=== PATIENT | female | born 1935 | race Caucasian/White ===

== ENCOUNTER 2017-09-03 17:07 | Inpatient (IN) | payer OTHER ==
[2017-09-03 17:17] VITALS: BMI 19.0
--- NOTE | 2017-09-03 18:31 | HP ---
CIWA Score - CIWA Score Nausea/Vomitin Muscle Tremors: 4-Moderate,w/Arms Extend Anxiety: 4-Mod. Anxious/Guarded Agitation: 4-Moderately Restless Paroxysmal Sweats: 3 Orientation: 0-Oriented Tacttile Disturbances: 1-Very Mild Itch/Numbness Auditory Disturbances: 0-None Visual Disturbances: 0-None Headache: 0-None Present CIWA-Ar Total Score: 19 Admission ROS BHS - HPI Chief Complaint: Withdrawal sx. Allergies/Adverse Reactions: Allergies Allergy/AdvReac Type Severity Reaction Status Date / Time No Known Drug Allergies Allergy Verified 09/03/17 18:07 NKA Allergy Uncoded 09/03/17 18:07 History of Present Illness: 82 y/o woman with a long hx. of alcoholism is admitted for detox. Pt. has been in previous detox & rehab, reports almost 2 yrs. sober in 1987 to 1989. Exam Limitations: No Limitations - Ebola screening Have you traveled outside of the country in the last 21 days: No (N) Have you had contact with anyone from an Ebola affected area: No Have you been sick,other than usual withdrawal symptoms: No Do you have a fever: No - Review of Systems Constitutional: Diaphoresis EENT: reports: Hearing Loss (has hearing aide) Respiratory: reports: No Symptoms reported Cardiac: reports: No Symptoms Reported GI: reports: Nausea, Abdominal cramping : reports: No Symptoms Reported Musculoskeletal: reports: Back Pain, Joint Pain, Muscle Pain Integumentary: reports: Sweating Neuro: reports: Tremors Endocrine: reports: No Symptoms Reported Hematology: reports: No Symptoms Reported Psychiatric: reports: No Sypmtoms Reported Other Systems: Reviewed and Negative Patient History - Patient Medical History Hx Anemia: No Hx Asthma: No Hx Chronic Obstructive Pulmonary Disease (COPD): No Hx Cancer: No Hx Cardiac Disorders: Yes (mild IA) Hx Congestive Heart Failure: No Hx Hypertension: Yes Hx Hypercholesterolemia: No Hx Pacemaker: No HX Cerebrovascular Accident: No Hx Seizures: No Hx Dementia: No Hx Diabetes: No Hx Gastrointestinal Disorders: No Hx Liver Disease: No Hx Genitourinary Disorders: No Hx Sexually Transmitted Disorders: No Hx Renal Disease (ESRD): No Hx Thyroid Disease: No Hx Human Immunodeficiency Virus (HIV): No Hx Hepatitis C: No Hx Depression: Yes Hx Suicide Attempt: No Hx Bipolar Disorder: No Hx Schizophrenia: No - Patient Surgical History Past Surgical History: Yes Hx Neurologic Surgery: No Hx Cataract Extraction: No Hx Cardiac Surgery: No Hx Lung Surgery: No Hx Breast Surgery: No Hx Breast Biopsy: No Hx Abdominal Surgery: No Hx Appendectomy: No Hx Cholecystectomy: No Hx Genitourinary Surgery: No Hx Section: No Hx Orthopedic Surgery: Yes (RT KNEE REPLACEMENT 5 YRS AGO) Hx Hysterectomy: No Anesthesia Reaction: No - PPD History Previous Implant?: Yes Documented Results: Negative w/o proof Implanted On Prior R Admission?: No PPD to be Administered?: Yes - Smoking Cessation Smoking history: Former smoker Have you smoked in the past 12 months: No If you are a former smoker, when did you quit?: 60YRS AGO Hx Chewing Tobacco Use: No Initiated information on smoking cessation: No - Substance & Tx. History Hx Alcohol Use: Yes Hx Substance Use: No Substance Use Type: Alcohol Hx Substance Use Treatment: Yes (detox & rehab) - Substances Abused Alcohol Route: Oral Frequency: Daily Amount used: VODKA 1-2 pints Age of first use: 38 Date of Last Use: 09/03/17 Family Disease History - Family Disease History Family Disease History: Diabetes: Father, Heart Disease: Brother Admission Physical Exam BHS - Vital Signs Vital Signs: Vital Signs - 24 hr 09/03/17 17:09 Temperature 96.5 F L Pulse Rate 116 H Respiratory 20 Rate Blood Pressure 186/84 - Physical General Appearance: Yes: Tremorous, Irritable, Sweating, Anxious HEENTM: Yes: Within Normal Limits Respiratory: Yes: Chest Non-Tender, Lungs Clear, Normal Breath Sounds Neck: Yes: Supple Breast: Yes: Breast Exam Deferred Cardiology: Yes: Regular Rhythm, Regular Rate, S1, S2 Abdominal: Yes: Normal Bowel Sounds, Non Tender, Flat Genitourinary: Yes: Within Normal Limits Back: Yes: Within Normal Limits Musculoskeletal: Yes: Within Normal Limits Extremities: Yes: Tremors Neurological: Yes: Fully Oriented, Alert Integumentary: Yes: Diaphoresis Lymphatic: Yes: Within Normal Limits - Diagnostic (1) Alcohol dependence with uncomplicated withdrawal Current Visit: Yes Status: Acute (2) HTN (hypertension) Current Visit: Yes Status: Acute Qualifiers: Hypertension type: essential hypertension Qualified Code(s): I10 - Essential (primary) hypertension (3) Osteoarthritis Current Visit: Yes Status: Acute Qualifiers: Osteoarthritis location: hand Osteoarthritis type: primary Laterality: bilateral Qualified Code(s): M19.041 - Primary osteoarthritis, right hand; M19.042 - Primary osteoarthritis, left hand; M19.042 - Primary osteoarthritis, left hand Cleared for Admission BHS - Detox or Rehab [facility] Level of Care: Medically Managed Detox Regimen/Protocol: Librium S Breath Alcohol Content Breath Alcohol Content: 0 Urine Pregancy Test - Result Urine Test Results: Negative- NO Line Present Urine Drug Screen - Results Drug Screen Negative: No Urine Drug Screen Results: BZO-Benzodiazepines
[2017-09-03] MEDS ORDERED: LOPERAMIDE HCL 2 MG CAPSULE PO PRN (18:44)
[2017-09-03] MEDS ORDERED: P-EPHED 60MG/TRIPROLIDI 2.5MG TABLET PO PRN (18:44)
[2017-09-03] MEDS ORDERED: chlordiazePOXIDE HCL 25 MG CAPSULE PO PRN (18:44)
[2017-09-03] MEDS ORDERED: chlordiazePOXIDE HCL 25 MG CAPSULE PO ONE (18:44)
[2017-09-03] MEDS ORDERED: MENTHOL/PHENOL 1 EACH UD MM PRN (18:44)
[2017-09-03] MEDS ORDERED: guaiFENesin/D-METHORPHAN HB 10 ML UNIT-DOSE CUPS PO PRN (18:44)
[2017-09-03] MEDS ORDERED: MAGNESIUM HYDROX 2400MG/30ML ORAL SUSPENSION 30 ML CUP PO PRN (18:44)
[2017-09-03] MEDS ORDERED: MAGNESIUM CITRATE 300 ML BOTTLE PO PRN (18:44)
[2017-09-03] MEDS ORDERED: IBUPROFEN 400 MG TABLET (FP) PO PRN (18:44)
[2017-09-03] MEDS ORDERED: amLODIPine BESYLATE 5 MG TABLET (FP) PO ONE (18:51)
[2017-09-03] MEDS: THIAMINE HCL 100 MG TABLET (FP) PO SCH (23:06)
[2017-09-03] MEDS: amLODIPine BESYLATE 5 MG TABLET (FP) PO SCH (23:06)
[2017-09-03] MEDS: chlordiazePOXIDE HCL 25 MG CAPSULE PO SCH (23:06)
[2017-09-04] MEDS: chlordiazePOXIDE HCL 25 MG CAPSULE PO SCH ×3 (06:30→17:28)
[2017-09-04 10:06] LABS: ALBUMIN 2.6 g/dl (3.4-5.0); ANION GAP 9 (8-16); CALCIUM 8.9 mg/dL (8.5-10.1); CO2 27 mmol/L (21-32); GLUCOSE,RANDOM 162 mg/dL (74-106); SGOT/AST 10 U/L (15-37); SGPT/ALT 13 U/L (12-78)
[2017-09-04 10:09] LABS: ALK PHOS 81 U/L (45-117); BILIRUBIN,TOTAL 0.5 mg/dL (0.2-1.0); TOT PROT 6.1 g/dl (6.4-8.2)
[2017-09-04 10:17] LABS: MCH 31.1 pg (25.7-33.7); MCHC 33.9 g/dl (32.0-36.0); MEAN CELL VOLUME 91.6 fl (80-96); MEAN PLT VOLUME 7.4 fl (7.5-11.1); PLATELET COUNT 249 K/MM3 (134-434); RDW 14.8 % (11.6-15.6); WHITE BLOOD COUNT 8.3 K/mm3 (4.0-10.0)
--- NOTE | 2017-09-04 10:46 | PN ---
[facility] CIWA - CIWA Score Nausea/Vomitin-Mild Nausea/No Vomiting Muscle Tremors: 4-Moderate,w/Arms Extend Anxiety: 4-Mod. Anxious/Guarded Agitation: 3 Paroxysmal Sweats: 1-Minimal Palms Moist Orientation: 0-Oriented Tacttile Disturbances: 0-None Auditory Disturbances: 0-None Visual Disturbances: 0-None Headache: 0-None Present CIWA-Ar Total Score: 13 BHS Progress Note (SOAP) Subjective: nausea tremor agitation Objective: 09/04/17 10:45 Vital Signs Temperature 98.4 F 09/04/17 10:42 Pulse Rate 99 H 09/04/17 10:42 Respiratory Rate 18 09/04/17 10:42 Blood Pressure 151/78 09/04/17 10:42 O2 Sat by Pulse Oximetry (%) Laboratory Last Values WBC 8.3 K/mm3 (4.0-10.0) 09/04/17 08:00 RBC 3.62 M/mm3 (3.60-5.2) 09/04/17 08:00 Hgb 11.3 GM/dL (10.7-15.3) 09/04/17 08:00 Hct 33.2 % (32.4-45.2) 09/04/17 08:00 MCV 91.6 fl (80-96) 09/04/17 08:00 MCH 31.1 pg (25.7-33.7) 09/04/17 08:00 MCHC 33.9 g/dl (32.0-36.0) 09/04/17 08:00 RDW 14.8 % (11.6-15.6) 09/04/17 08:00 Plt Count 249 K/MM3 (134-434) 09/04/17 08:00 MPV 7.4 fl (7.5-11.1) L 09/04/17 08:00 Sodium 141 mmol/L (136-145) 09/04/17 08:00 Potassium 4.1 mmol/L (3.5-5.1) 09/04/17 08:00 Chloride 105 mmol/L (98-107) 09/04/17 08:00 Carbon Dioxide 27 mmol/L (21-32) 09/04/17 08:00 Anion Gap 9 (8-16) 09/04/17 08:00 BUN 19 mg/dL (7-18) H 09/04/17 08:00 Creatinine 1.0 mg/dL (0.55-1.02) 09/04/17 08:00 Creat Clearance w eGFR 52.82 (>60) 09/04/17 08:00 Random Glucose 162 mg/dL (74-106) H 09/04/17 08:00 Calcium 8.9 mg/dL (8.5-10.1) 09/04/17 08:00 Total Bilirubin 0.5 mg/dL (0.2-1.0) 09/04/17 08:00 AST 10 U/L (15-37) L 09/04/17 08:00 ALT 13 U/L (12-78) 09/04/17 08:00 Alkaline Phosphatase 81 U/L (45-117) 09/04/17 08:00 Total Protein 6.1 g/dl (6.4-8.2) L 09/04/17 08:00 Albumin 2.6 g/dl (3.4-5.0) L 09/04/17 08:00 lab noted Assessment: 09/04/17 10:46 withdrawal sx Plan: continue detox
[2017-09-04] MEDS: PRENATAL VITAMINS W/ FOLIC ACID TABLET (FP) PO SCH (11:01)
[2017-09-04] MEDS: amLODIPine BESYLATE 5 MG TABLET (FP) PO SCH ×2 (11:02→22:57)
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
[2017-09-04] MEDS: chlordiazePOXIDE HCL 10 MG CAPSULE PO SCH (22:57)
[2017-09-04] MEDS: THIAMINE HCL 100 MG TABLET (FP) PO SCH (22:57)
[2017-09-05] MEDS: chlordiazePOXIDE HCL 10 MG CAPSULE PO SCH ×3 (06:47→17:45)
[2017-09-05] MEDS: PRENATAL VITAMINS W/ FOLIC ACID TABLET (FP) PO SCH (11:15)
[2017-09-05] MEDS: amLODIPine BESYLATE 5 MG TABLET (FP) PO SCH ×2 (11:18→22:35)
--- NOTE | 2017-09-05 12:55 | PN ---
S CIWA - CIWA Score Nausea/Vomitin-No Nausea/No Vomiting Muscle Tremors: 4-Moderate,w/Arms Extend Anxiety: 3 Agitation: 3 Paroxysmal Sweats: 3 Orientation: 0-Oriented Tacttile Disturbances: 0-None Auditory Disturbances: 0-None Visual Disturbances: 0-None Headache: 0-None Present CIWA-Ar Total Score: 13 BHS Progress Note (SOAP) Subjective: chronic knee pain sweats shakes interrupted sleep Objective: 09/05/17 12:53 Vital Signs Temperature 98.1 F 09/05/17 10:00 Pulse Rate 94 H 09/05/17 10:00 Respiratory Rate 18 09/05/17 10:00 Blood Pressure 134/82 09/05/17 10:00 O2 Sat by Pulse Oximetry (%) Laboratory Tests 09/04/17 09/04/17 09/04/17 08:00 08:00 08:00 WBC 8.3 RBC 3.62 Hgb 11.3 Hct 33.2 MCV 91.6 MCH 31.1 MCHC 33.9 RDW 14.8 Plt Count 249 MPV 7.4 L Sodium 141 Potassium 4.1 Chloride 105 Carbon Dioxide 27 Anion Gap 9 BUN 19 H Creatinine 1.0 Creat Clearance w eGFR 52.82 Random Glucose 162 H Calcium 8.9 Total Bilirubin 0.5 AST 10 L ALT 13 Alkaline Phosphatase 81 Total Protein 6.1 L Albumin 2.6 L RPR Titer Nonreactive labs pending aaox3 ambulating no acute distress Assessment: 09/05/17 12:54 withdrawal sx Plan: continue detox increase fluids analgesic cream bid motrin prn
[2017-09-05] MEDS: METHYL SALICYLATE/MENTHOL OINT 30 GM TUBE TP SCH ×2 (14:42→22:58)
--- NOTE | 2017-09-05 15:14 | EKG ---
Test Reason : Blood Pressure : / mmHG Vent. Rate : 096 BPM Atrial Rate : 096 BPM P-R Int : 156 ms QRS Dur : 078 ms QT Int : 372 ms P-R-T Axes : 082 -03 039 degrees QTc Int : 469 ms SINUS RHYTHM WITH PREMATURE ATRIAL COMPLEXES NONSPECIFIC ST AND T WAVE ABNORMALITY ABNORMAL ECG WHEN COMPARED WITH ECG OF 03-SEP-2017 19:58, T WAVE VARIATION Confirmed by SHEYLA KENDRICK, JARETT ([id number]) on 09/05/2017 3:14:23 PM Referred By: Confirmed By:JARETT CARRION MD
--- NOTE | 2017-09-05 15:15 | EKG ---
Test Reason : Blood Pressure : / mmHG Vent. Rate : 100 BPM Atrial Rate : 100 BPM P-R Int : 148 ms QRS Dur : 084 ms QT Int : 342 ms P-R-T Axes : 002 061 022 degrees QTc Int : 441 ms SINUS RHYTHM WITH PREMATURE ATRIAL COMPLEXES NONSPECIFIC ST ABNORMALITY ABNORMAL ECG NO PREVIOUS ECGS AVAILABLE Confirmed by JARETT CARRION MD ([id number]) on 09/05/2017 3:15:18 PM Referred By: Confirmed By:JARETT CARRION MD
[2017-09-05] MEDS ORDERED: cloNIDine HCL 0.1 MG TABLET PO ONE (15:42)
[2017-09-05] MEDS: hydrOXYzine PAMOATE 50 MG CAPSULE (FP) PO PRN (15:48)
[2017-09-05] MEDS: THIAMINE HCL 100 MG TABLET (FP) PO SCH (22:35)
[2017-09-05] MEDS: chlordiazePOXIDE 5 MG CAPSULE PO SCH (22:36)
[2017-09-06] MEDS: chlordiazePOXIDE 5 MG CAPSULE PO SCH ×3 (06:11→16:58)
[2017-09-06 10:32] LABS: URINE APPEARANCE CLEAR; URINE BILIRUBIN NEGATIVE (NEGATIVE); URINE BLOOD NEGATIVE (NEGATIVE); URINE COLOR LTYELLOW; URINE GLUCOSE (UA) NEGATIVE (NEGATIVE); URINE KETONE NEGATIVE (NEGATIVE); URINE LEUK ESTERASE NEGATIVE (NEGATIVE); URINE NITRITE NEGATIVE (NEGATIVE); URINE PROTEIN NEGATIVE (NEGATIVE); URINE UROBILINOGEN NEGATIVE mg/dL (0.2-1.0)
[2017-09-06] MEDS: METHYL SALICYLATE/MENTHOL OINT 30 GM TUBE TP SCH ×2 (11:00→22:34)
[2017-09-06] MEDS: PRENATAL VITAMINS W/ FOLIC ACID TABLET (FP) PO SCH (11:00)
[2017-09-06] MEDS: amLODIPine BESYLATE 5 MG TABLET (FP) PO SCH ×2 (11:01→22:34)
--- NOTE | 2017-09-06 12:46 | PN ---
BHS Progress Note (SOAP) Subjective: tired sweats interrupted sleep Objective: 09/06/17 12:45 Vital Signs Temperature 98.2 F 09/06/17 10:00 Pulse Rate 72 09/06/17 10:00 Respiratory Rate 18 09/06/17 10:00 Blood Pressure 100/60 09/06/17 10:00 O2 Sat by Pulse Oximetry (%) aaox3 ambulating no acute distress Assessment: 09/06/17 12:45 withdrawal sx Plan: continue detox increase fluids d/c in am
[2017-09-06] MEDS: MAG HYDROX/AL HYDROX/SIMETH 30 ML UNIT-DOSE CUP PO PRN (15:24)
[2017-09-06 18:41] LABS: URINE LEUK ESTERASE NEGATIVE (NEGATIVE)
[2017-09-06] MEDS: ACETAMINOPHEN 325 MG TABLET (FP) PO PRN (22:34)
[2017-09-06] MEDS: chlordiazePOXIDE HCL 10 MG CAPSULE PO SCH (22:34)
[2017-09-06] MEDS: hydrOXYzine PAMOATE 50 MG CAPSULE (FP) PO PRN (22:34)
[2017-09-06] MEDS: THIAMINE HCL 100 MG TABLET (FP) PO SCH (23:04)
[2017-09-07] MEDS: MAG HYDROX/AL HYDROX/SIMETH 30 ML UNIT-DOSE CUP PO PRN ×2 (04:08→19:04)
[2017-09-07] MEDS: chlordiazePOXIDE HCL 10 MG CAPSULE PO SCH ×4 (06:19→18:41)
--- NOTE | 2017-09-07 09:15 | DS ---
[facility] Detox Discharge Summary Admission Date: 09/03/17 Discharge Date: 09/07/17 - History Present History: Alcohol Dependence - Physical Exam Results Vital Signs: Vital Signs Temperature 96.6 F L 09/07/17 07:32 Pulse Rate 85 09/07/17 07:32 Respiratory Rate 20 09/07/17 07:32 Blood Pressure 138/93 09/07/17 07:32 O2 Sat by Pulse Oximetry (%) - Treatment Hospital Course: Detox Protocol Followed, Detoxed Safely, Responded well, Discharged Condition Good, Rehab Referral Accepted - Medication Discharge Medications: Ambulatory Orders Unobtainable [Unobtainable] 09/03/17 - Diagnosis (1) Alcohol dependence with uncomplicated withdrawal Current Visit: Yes Status: Chronic (2) Alcohol-induced mood disorder Current Visit: Yes Status: Acute (3) Depressive disorder Current Visit: Yes Status: Chronic (4) HTN (hypertension) Current Visit: Yes Status: Chronic Qualifiers: Hypertension type: essential hypertension Qualified Code(s): I10 - Essential (primary) hypertension (5) Osteoarthritis Current Visit: Yes Status: Chronic Qualifiers: Osteoarthritis location: hand Osteoarthritis type: primary Laterality: bilateral Qualified Code(s): M19.041 - Primary osteoarthritis, right hand; M19.042 - Primary osteoarthritis, left hand; M19.042 - Primary osteoarthritis, left hand (6) MDD (major depressive disorder), recurrent episode Current Visit: Yes Status: Ruled-out - AMA Did Patient Leave Against Medical Advice: No
[2017-09-07] MEDS: amLODIPine BESYLATE 5 MG TABLET (FP) PO SCH ×2 (11:56→23:06)
[2017-09-07] MEDS: METHYL SALICYLATE/MENTHOL OINT 30 GM TUBE TP SCH ×2 (11:56→23:06)
[2017-09-07] MEDS: PRENATAL VITAMINS W/ FOLIC ACID TABLET (FP) PO SCH (11:56)
[2017-09-07] MEDS: hydrOXYzine PAMOATE 50 MG CAPSULE (FP) PO PRN (15:53)
[2017-09-07] MEDS: ACETAMINOPHEN 325 MG TABLET (FP) PO PRN (16:36)
[2017-09-07] MEDS: THIAMINE HCL 100 MG TABLET (FP) PO SCH (23:06)
[2017-09-08] MEDS: hydrOXYzine PAMOATE 50 MG CAPSULE (FP) PO PRN (01:11)
--- NOTE | 2017-09-08 09:03 | DS ---
[facility] Detox Discharge Summary Admission Date: 09/03/17 Discharge Date: 09/08/17 - History Present History: Alcohol Dependence - Physical Exam Results Vital Signs: Vital Signs Temperature 97.9 F 09/08/17 06:41 Pulse Rate 89 09/08/17 06:41 Respiratory Rate 16 09/08/17 06:41 Blood Pressure 142/75 09/08/17 06:41 O2 Sat by Pulse Oximetry (%) - Treatment Hospital Course: Detox Protocol Followed, Detoxed Safely, Responded well, Discharged Condition Good, Rehab Referral Accepted - Medication Discharge Medications: Ambulatory Orders Unobtainable [Unobtainable] 09/03/17 - Diagnosis (1) Alcohol dependence with uncomplicated withdrawal Current Visit: Yes Status: Chronic (2) Alcohol-induced mood disorder Current Visit: Yes Status: Acute (3) Depressive disorder Current Visit: Yes Status: Chronic (4) HTN (hypertension) Current Visit: Yes Status: Chronic Qualifiers: Hypertension type: essential hypertension Qualified Code(s): I10 - Essential (primary) hypertension (5) Osteoarthritis Current Visit: Yes Status: Chronic Qualifiers: Osteoarthritis location: hand Osteoarthritis type: primary Laterality: bilateral Qualified Code(s): M19.041 - Primary osteoarthritis, right hand; M19.042 - Primary osteoarthritis, left hand; M19.042 - Primary osteoarthritis, left hand (6) MDD (major depressive disorder), recurrent episode Current Visit: Yes Status: Ruled-out - AMA Did Patient Leave Against Medical Advice: No
[2017-09-08 10:57] VITALS: BP 152/90; PULSE 111; TEMP 97.2
[2017-09-08] MEDS: amLODIPine BESYLATE 5 MG TABLET (FP) PO SCH (11:22)
[2017-09-08] MEDS: PRENATAL VITAMINS W/ FOLIC ACID TABLET (FP) PO SCH (11:22)
== END 2017-09-08 11:35 | disposition home or self-care (01) | DRG 897 ==
LOC: YASAS 17:07 → Y6N 18:42
PROVIDERS: ADMIT Internal Medicine; ATTEND Internal Medicine
PROC: HZ2ZZZZ Detoxification Services for Substance Abuse Treatment (ICD-10-PCS; principal; 2017-09-03)
DX: F10.230 Alcohol dependence with withdrawal, uncomplicated (principal); F33.9 Major depressive disorder, recurrent, unspecified; F10.24 Alcohol dependence with alcohol-induced mood disorder; I10 Essential (primary) hypertension; M19.042 Primary osteoarthritis, left hand
CPT/HCPCS: 36415; 80053; 81003; 85027; 86593; 93005; 93010